=== PATIENT | male | born 1940 | race Caucasian/White ===

== ENCOUNTER 2020-03-09 11:19 | Inpatient (IN) ==
--- NOTE | 2020-02-21 13:30 | PAT Medication Instructions ---
Medication Instructions Date of Service February 21, 2020 Home Medications amlodipine 10 mg PO HS aspirin [Aspir-Low] 81 mg PO HS] cholecalciferol (vitamin D3) [Vitamin D3] 25 mcg PO QAM cyanocobalamin (vitamin B-12) 100 mcg PO QAM diclofenac sodium 75 mg PO HS gabapentin 200 mg PO HS lisinopril 40 mg PO HS magnesium oxide 400 mg PO QAM ASK your surgeon for instructions diclofenac sodium 75 mg PO HS DO NOT take the morning of surgery cholecalciferol (vitamin D3) [Vitamin D3] 25 mcg PO QAM cyanocobalamin (vitamin B-12) 100 mcg PO QAM magnesium oxide 400 mg PO QAM Take evening before surgery amlodipine 10 mg PO HS aspirin [Aspir-Low] 81 mg PO HS gabapentin 200 mg PO HS lisinopril 40 mg PO HS OTHERWISE NOTHING TO EAT OR DRINK AFTER MIDNIGHT Other Notes If you have any questions please call us at [phone] or [phone] or [phone] or [phone]
--- NOTE | 2020-02-23 12:14 | Anesthesiology Consultation ---
Date of Service February 23, 2020 Assessment & Plan (1) Encounter for pre-operative examination: - Per assessment on 02/22: Travel screen negative. No known COVID-19 positive contacts or current COVID-19 related symptoms. Surgeon arranging preop COVID testing. Awaiting results. - ASA instructions per surgeon/prescriber Chart Review Chart Review: Acceptable Risk for Surgery and Patient seen in Pre Admission Testing Teaching & Discussion Pre-Anesthesia Teaching/Discussion Notes: Instructed NPO after midnight before surgery,except medications with 15 cc of water. Medication instructions provided according to the PAT guidelines. History Surgery Operation Date: 03/09/20 10:35 Proposed Procedures p L5-S1 Decompression, L4-S1 Fusion, Spinal Cord Monitoring - Hadley Byrne, Height/Weight Height: 5 ft 9 in Weight: 93.3 kg Allergies Allergy/AdvReac Type Severity Reaction Status Date / Time saw ashshivam Allergy Severe Hives, Verified 02/22/20 14:31 dyspnea adhesive tape AdvReac Intermediate Blistering Verified 02/22/20 14:31 with tape/steristrips/some bandaids Medications Home Medications Medication Instructions Recorded Confirmed Last Taken amlodipine 10 mg PO HS 02/15/20 02/15/20 Unknown aspirin [Aspir-Low] 81 mg PO HS 02/15/20 02/15/20 Unknown cholecalciferol (vitamin D3) 25 mcg PO QAM 02/15/20 02/15/20 Unknown [Vitamin D3] cyanocobalamin (vitamin B-12) 100 mcg PO QAM 02/15/20 02/15/20 Unknown diclofenac sodium 75 mg PO HS 02/15/20 02/15/20 Unknown gabapentin 200 mg PO HS 02/15/20 02/15/20 Unknown lisinopril 40 mg PO HS 02/15/20 02/15/20 Unknown magnesium oxide 400 mg PO QAM 02/15/20 02/15/20 Unknown Past Medical History Medical History Chronic back pain Degenerative disc disease Hyperlipidemia Hypertension Osteoarthritis Spinal cord stimulator status Medtronic, advised to bring remote AM DOS Exercise / Class Metabolic Activity II 4-5 Yardwork/Stairs/Walk up hill Past Family History Family History Son Family history of diabetes mellitus Past Surgical History Surgical History History of appendectomy History of colonoscopy History of laminectomy lumbar x2 History of total knee replacement R/L History of total shoulder replacement right S/P insertion of spinal cord stimulator + replacement Past Anesthesia History No Hx of Anesthesia Complications and No Family Hx of Anesthesia Complications History of PONV No Hx of PONV Social History Smoking Status: Former smoker Do You Dip or Chew Tobacco: No Smoking End Date: Quit 45 years ago Hx Alcohol Use: No Hx Substance Use: No Review of Systems Patient denies chest pain, shortness of breath, dyspnea on exertion, fever, chills, cough, wheezing, palpitations. Physical Exam Vital Signs VITALS BP 103/80 P 72 TEMP 98.1 SP02 93%RA RESP 16 PHYSICAL Full neck and c-spine range of motion. Full TMJ range of motion. TMD 3.5 finger breaths Mallampati Score 2 Dentition: intact, several crowns Lungs: clear throughout to auscultation Cardiac: regular rate and rhythm, no murmurs noted Spine: normal Carotid arteries: negative bruit Extremities: no edema Testing Laboratory Results 02/23/20 12:51 02/23/20 12:51 PT 10.9 Seconds (9.0-12.0) 02/23/20 12:51 INR 1.0 (0.9-1.1) 02/23/20 12:51 APTT 29.2 Seconds (21.0-31.0) 02/23/20 12:51 Urine Color Yellow 02/23/20 13:35 Urine Appearance Clear (Clear) 02/23/20 13:35 Urine pH 7.0 (4.5-7.5) 02/23/20 13:35 Ur Specific [place] 1.010 (1.000-1.030) 02/23/20 13:35 Urine Protein Negative (Negative) 02/23/20 13:35 Urine Glucose (UA) Negative (Negative) 02/23/20 13:35 Urine Ketones Negative (Negative) 02/23/20 13:35 Urine Nitrite Negative (Negative) 02/23/20 13:35 Ur Leukocyte Esterase Negative (Negative) 02/23/20 13:35 Blood Type A Positive 02/23/20 12:51 Antibody Screen NEGATIVE 02/23/20 12:51 Electrocardiogram Date: 02/23/20 Findings: + NSR @ (68) Chest X-Ray Date: 02/23/20 FINDINGS: PA and lateral chest radiographs are obtained. No prior studies are available for comparison at the time of dictation. The cardiomediastinal silhouette is unremarkable noting atherosclerotic calcification of the thoracic aorta. There is elevation of the left hemidiaphragm with associated atelectasis. No airspace consolidation or pleural effusion is identified. There is no pneumothorax. The skeletal structures are osteopenic. The bony thorax appears intact. Degenerative change is seen throughout the thoracic spine. A right shoulder arthroplasty is in place. Advanced arthritic change is seen in the left shoulder. Surgical clips are noted in the left lower neck. A neurostimulator device projects over the lower thoracic region. IMPRESSION: No active disease in the chest.
--- NOTE | 2020-02-23 13:17 | XRay Report ---
TWO VIEW CHEST CLINICAL HISTORY: Preoperative examination. FINDINGS: PA and lateral chest radiographs are obtained. No prior studies are available for compariso n at the time of dictation. The cardiomediastinal silhouette is unremarkable noting atherosclerotic calcification of the thoracic aorta. There is elevation of the left hemidiaphragm with associated ate lectasis. No airspace consolidation or pleural effusion is identified. There is no pneumothorax. The skeletal structures are osteopenic. The bony thorax appears intact. Degenerative change is seen throu ghout the thoracic spine. A right shoulder arthroplasty is in place. Advanced arthritic change is see n in the left shoulder. Surgical clips are noted in the left lower neck. A neurostimulator device pro jects over the lower thoracic region. IMPRESSION: No active disease in the chest. ACT 112: Negative or not required by law. Electronically signed by: Ramirez Pappas M.D. 02/23/2020 1:16 PM
[2020-02-23 15:19] LABS: Basophils # (auto) 0.06 K/uL (0-0.2); Basophils % (auto) 0.6 %; Eosinophils # (auto) 0.12 K/uL (0-0.5); Eosinophils % (auto) 1.2 %; Hematocrit (blood only) 39.6 % (42-52); Immature Granulocytes # (auto) 0.03 K/uL (0.00-0.02); Immature Granulocytes % (auto) 0.3 %; Lymphocytes # (auto) 2.22 K/uL (1.2-3.4); Lymphocytes % (auto) 22.7 %; Mean Corpuscular Hemoglobin 30.4 pg (25-34); Mean Corpuscular Hgb Conc 35.4 g/dL (32-36); Mean Corpuscular Volume 86.1 fL (80-100); Mean Platelet Volume 10.1 fL (7.4-10.4); Monocytes # (auto) 0.97 K/uL (0.11-0.59); Monocytes % (auto) 9.9 %; Neutrophils # (auto) 6.38 K/uL (1.4-6.5); Neutrophils % (auto) 65.3 %; Platelet Count 259 K/uL (130-400); RDW Coefficient of Variation 12.8 % (11.5-14.5); RDW Standard Deviation 40.6 fL (36.4-46.3); White Blood Count 9.78 K/uL (4.8-10.8)
[2020-02-23 15:22] LABS: Appearance Urine Clear (Clear); Bilirubin Urine Negative (Negative); Blood Urine Negative (Negative); Color Urine Yellow; Glucose Urine UA Negative (Negative); Ketones Urine Negative (Negative); Leukocyte Esterase Urine Negative (Negative); Nitrite Urine Negative (Negative); Protein Urine Negative (Negative); Urobilinogen Urine Negative (Negative)
[2020-02-23 15:26] LABS: BUN Creatinine Ratio 22.3 (10-20); Calcium 9.3 mg/dl (8.5-10.1); Creatinine Clr Calc Pharmacy 62.1 ml/min; Est GFR (African American) 75.6; Est GFR (Non-African American) 65.2; Potassium 4.3 mmol/L (3.5-5.1)
[2020-02-23 15:29] LABS: Partial Thromboplastin Time 29.2 Seconds (21.0-31.0); Prothrombin Time 10.9 Seconds (9.0-12.0)
--- NOTE | 2020-02-24 05:25 | Electrocardiogram Report ---
Test Reason : Blood Pressure : / mmHG Vent. Rate : 068 BPM Atrial Rate : 068 BPM P-R Int : 196 ms QRS Dur : 092 ms QT Int : 378 ms P-R-T Axes : 063 064 058 degrees QTc Int : 401 ms Normal sinus rhythm Normal ECG No previous ECGs available Confirmed by Jn Pinzon ([id number]) on 02/24/2020 5:24:40 AM Referred By: Hadley Byrne Confirmed By:Jn Pinzon
[~2020-03-09 11:19] MED LIST: ACETAMINOPHEN 500 MG TAB PO SCH; CeleBREX 200 MG CAP PO SCH; GABAPENTIN 300 MG CAP PO SCH; LR 15ML/HR IV SCH; SODIUM CHLORIDE 0.9% 250 ML IV PRN; ceFAZolin 2000MG 2,000 MG/15 ML SYR IV SCH
[2020-03-09] MEDS ORDERED: NEOSTIGMINE METHYLSULFATE 1 MG/ML 10ML VIAL ONE (11:40)
[2020-03-09] MEDS ORDERED: LIDOCAINE HCL 2% 2 ML VIAL/AMP(20MG/ML) INFIL ONE (11:40)
[2020-03-09] MEDS ORDERED: MIDAZOLAM HCL 1 MG/ML 2ML VIAL ONE (11:40)
[2020-03-09] MEDS ORDERED: fentaNYL citrate 100 MCG/2 ML VIAL ONE (11:40)
[2020-03-09] MEDS ORDERED: ONDANSETRON INJ 2 MG/ML 2 ML VIAL ONE ×2 (11:40→14:57)
[2020-03-09] MEDS ORDERED: PROPOFOL IV EMULSION 10 MG/ML 20 ML VIAL IV ONE (11:40)
[2020-03-09] MEDS ORDERED: DEXAMETHASONE SOD INJ 4 MG/ML VIAL ONE ×2 (11:40→14:57)
[2020-03-09] MEDS ORDERED: GLYCOPYRROLATE 0.2 MG/ML VIAL ONE (11:40)
[2020-03-09] MEDS ORDERED: ROCURONIUM BROMIDE 10 MG/ML 5 ML VIAL IV ONE (11:40)
--- NOTE | 2020-03-09 12:25 | History & Physical Bridge Note ---
Date of Service March 09, 2020 History & Physical Bridge Note I have examined the patient, reviewed the History & Physical and in the interval since the performance of the History & Physical I have noted the following changes of clinical significance: no changes noted
--- NOTE | 2020-03-09 12:26 | History & Physical Report ---
Date of Service March 09, 2020 Assessment & Plan (1) Neurogenic claudication due to lumbar spinal stenosis: Admission and Anticipated Discharge Date Admission Date: L5-S1 decompression, L4-S1 fusion History of Present Illness Chief Complaint: Back and leg pain Primary Care Provider: Rudi Snyder MD This is an 79-year-old male who presents with chronic persistent worsening back and leg pain after failing course of nonoperative care is here for surgical intervention. Allergies Allergy/AdvReac Type Severity Reaction Status Date / Time saw raphael Allergy Severe Hives, Verified 03/09/20 11:51 dyspnea adhesive tape AdvReac Intermediate Blistering Verified 03/09/20 11:51 with tape/steristrips/some bandaids Home Medications Home Medications Medication Instructions Recorded Confirmed Type amlodipine 10 mg PO HS 02/15/20 03/09/20 History aspirin [Aspir-Low] 81 mg PO HS 02/15/20 03/09/20 History cholecalciferol (vitamin D3) 25 mcg PO QAM 02/15/20 03/09/20 History [Vitamin D3] cyanocobalamin (vitamin B-12) 100 mcg PO QAM 02/15/20 03/09/20 History diclofenac sodium 75 mg PO HS 02/15/20 03/09/20 History gabapentin 200 mg PO HS 02/15/20 03/09/20 History lisinopril 40 mg PO HS 02/15/20 03/09/20 History magnesium oxide 400 mg PO QAM 02/15/20 03/09/20 History Past Med/Surg History Medical History Chronic back pain Degenerative disc disease Hyperlipidemia Hypertension Osteoarthritis Spinal cord stimulator status Medtr[employer], advised to bring remote AM DOS Surgical History History of appendectomy History of colonoscopy History of laminectomy lumbar x2 History of total knee replacement R/L History of total shoulder replacement right S/P insertion of spinal cord stimulator + replacement Family History Son Family history of diabetes mellitus Social History Smoking Status: Former smoker Smoking End Date: Quit 45 years ago; 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); Do You Dip or Chew Tobacco: No; Hx Alcohol Use: No Hx Substance Use: No Preferred Language: Maori Communication Ability: Effective Regrader Required: No Beliefs That Will Affect Care: None Current Living Situation: Spouse Other Information That Helps Us Care for You: No Feels Safe at Home: Yes Safety Concerns: Feels Safe At This Time Assistive Devices: Cane and Glasses Assistive Devices Comment: CANE PRN Physical Exam Physical Exam: Patient is alert and oriented Heart regular rate and rhythm Lungs clear to auscultation Results & Data ([facility]) Vital Signs (Past 12 Hours) Vital Signs Temp Pulse Resp BP Pulse Ox 03/09/20 11:55 36.7 C 88 20 152/98 H 97
[2020-03-09] MEDS ORDERED: PROMETHAZINE HCL 6.25 MG in SODIUM CHLORIDE 0.9% 50 ML IV PRN (12:47)
[2020-03-09] MEDS ORDERED: fentaNYL citrate 100 MCG/2 ML VIAL IV PRN (12:47)
[2020-03-09] MEDS ORDERED: ONDANSETRON INJ 2 MG/ML 2 ML VIAL IV PRN ×2 (12:47→16:31)
[2020-03-09] MEDS ORDERED: HYDROmorphone INJ 2 MG/ML SYR/VIAL IV PRN (12:47)
[2020-03-09] MEDS ORDERED: ePHEDrine sulfate 50 MG/ML AMP IV PRN (12:47)
[2020-03-09] MEDS ORDERED: ATROPINE SULFATE 0.1 MG/ML 10ML SYR IV PRN (12:47)
[2020-03-09] MEDS ORDERED: BACITRACIN INJ 50,000 UNIT VIAL ONE (12:56)
[2020-03-09] MEDS ORDERED: BUPIVACAINE/EPINEPHRINE 0.5% MPF 1:200,000 30 ML VIAL ONE (12:56)
[2020-03-09] MEDS ORDERED: PHENYLEPHRINE 100MCG/ML 5ML SYR ONE (13:39)
[2020-03-09] MEDS ORDERED: HYDROmorphone INJ 2 MG/ML SYR/VIAL ONE (13:57)
[2020-03-09] MEDS ORDERED: FLOSEAL HEMOSTATIC MATRIX 10ML TOP ONE (14:58)
--- NOTE | 2020-03-09 15:00 | Operative Report ---
Post Operative Report Pre & Post Diagnosis Operation Date: 03/09/20 12:55 Pre-Op Diagnosis: Lumbar spinal stenosis with spondylolisthesis and neurogenic claudication Post-Op Diagnosis: Same I identified the patient and participated in the time-out.: Yes Procedure Operation Date: 03/09/20 12:55 Actual Procedures #1 revision decompression with medial facetectomies and foraminotomies L4-5 L5- S1. #2 posterior spinal fusion L4-5 L5-S1. #3 placement posterior instrumentation L4-S1. #4 placement of locally harvested morselized autograft in the posterior lateral gutters. #5 placement infuse collagen sponge, master graft in the posterior gutters L4-S1. Surgeon Hadley Byrne, Hot Header Operator Abdullahi Young Estimated Blood Loss 50 Findings Consistent with Post-Op Diagnosis Specimens None Indications This is a 79-year-old male who presents with above-mentioned diagnosis after failing course of nonoperative care is here for the above-mentioned procedure. Description of Procedure Patient was met with identified informed consent obtained. Patient was then taken to the operative suite underwent an patient placed in a prone position the Domingo table on top of the Angel frame. All bony prominences well-padded eyes inspected to ensure no external pressure placed upon the. This point the lumbar spine was prepped and draped in a normal sterile fashion. Sharp dissection with the assistance of Bovie cautery performed down to and exposing the remaining lamina and transverse processes of L4-L5 and the sacral ala bilaterally. Then performed revision medial facetectomy foraminotomies L4-5 L5-S1 on the right. There is evidence of dural ectasia underneath the facet at L5 4 5 on the right. Subsequently elected to forego complete facetectomy. I then placed pedicle screws in L4 and S1 levels bilaterally with assistance of fluoroscopy and locked them into final position. Transverse processes of L3-4 L5 and the sacral ala were bent burred to subcortical bleeding bone. Infuse collagen sponge mass graft local autograft was placed in the posterior gutters. I did place a small amount of DuraSeal at the L 4 L5 level on the right prophylactically. 15 round REINALDO drain was inserted. Incision was then closed with 1 Vicryl the fascia 2-0 Vicryl subcutaneously and 4 Monocryl for final skin closure. Steri-Strip sterile dressings placed. Patient waken taken to PACU stable condition. Please note spinal cord monitoring was utilized that the procedure no changes noted. Lastly Abdullahi record was present at the entire surgery involved the patient positioning complex portions of the surgery and final skin closure. I attest to the content of the Intraoperative Record and any orders documented therein. Any exceptions are noted below.
--- NOTE | 2020-03-09 15:01 | Fluoroscopy Report ---
FL lumbar spine 2-3V CLINICAL HISTORY: L5-S1 DECOMPRESSION/L4-S1 FUSION/INTERBODY COMPARISON STUDY: None FLUOROSCOPY TIME: 33 seconds. NUMBER OF FLUOROSCOPIC IMAGES: 2 FINDINGS: 2 fluoroscopic spot images are provided for interpretation. There are advanced degenerative changes within the lower lumbar spine. There is a grade 1 spondylolisthesis of L5 and S1. There are pedicle screws and adjoining spinal rods at the L4 and S1 levels. IMPRESSION: Intraoperative fluoroscopic spot images demonstrating an L4-S1 spinal fusion ACT 112: Negative or not required by law. Electronically signed by: Ayo Rivera M.D. 03/09/2020 2:59 PM
--- NOTE | 2020-03-09 15:49 | Anesthesiology Progress Note ---
Date of Service March 09, 2020 Anesthesia Post Procedure Vital Signs Vital Signs: Temp Pulse Pulse Resp BP BP Pulse Ox 03/09/20 15:35 58 L 14 139/83 99 03/09/20 15:25 66 14 156/76 H 99 03/09/20 15:17 36.6 C 71 17 133/81 100 03/09/20 11:55 36.7 C 88 20 152/98 H 97 Pain Intensity Right Hip: Pain Intensity: 3 Transfer of Care Handoff Completed per policy Notes Mental Status: alert / awake / arousable and participated in evaluation Nausea / Vomiting: adequately controlled Pain: adequately controlled Airway Patency, RR, SpO2: stable & adequate BP & HR: stable & adequate Hydration State: stable & adequate Anesthetic Complications: no major complications apparent
[2020-03-09] MEDS ORDERED: SOD PHOSPHATE/SOD BIPHOSPHATE ENEMA 132 ML BTL PR PRN (16:31)
[2020-03-09] MEDS ORDERED: LORazepam 0.5 MG TAB PO PRN (16:31)
[2020-03-09] MEDS ORDERED: DO NOT ADMINISTER FLU VACCINE PRN (16:31)
[2020-03-09] MEDS ORDERED: hydrOXYzine HCl 25 MG TAB PO PRN (16:31)
[2020-03-09] MEDS ORDERED: FAMOTIDINE 20 MG TAB PO PRN (16:31)
[2020-03-09] MEDS ORDERED: NALOXONE HCL 0.4 MG/1 ML VIAL/CARP IV PRN (16:31)
[2020-03-09] MEDS ORDERED: HYDROmorphone INJ 1 MG/ML SYRINGE IV PRN (16:31)
[2020-03-09] MEDS ORDERED: ONDANSETRON 4 MG OD TAB PO PRN (16:31)
[2020-03-09] MEDS ORDERED: diphenhydrAMINE Capsule 25 MG CAP PO PRN (16:31)
[2020-03-09] MEDS ORDERED: LORazepam 0.5 MG/1 ML VIAL IV PRN (16:31)
[2020-03-09] MEDS ORDERED: ACETAMINOPHEN 1,000 MG/100 ML VIAL IV PRN (16:31)
[2020-03-09] MEDS ORDERED: ALUMINUM/MAGNESIUM SUSP 30 ML UDC PO PRN (16:31)
[2020-03-09] MEDS ORDERED: DO NOT ADMINISTER PNEUMOCOCCAL VACCINE PRN (16:31)
[2020-03-09] MEDS ORDERED: MAGNESIUM HYDROXIDE SUSP 30 ML UDC PO PRN (16:31)
[2020-03-09] MEDS ORDERED: HYDROmorphone INJ 0.5 MG/0.5 ML SYR IV PRN (16:31)
[2020-03-09] MEDS ORDERED: bisacodyL 10 MG SUPP PR PRN (16:31)
[2020-03-09] MEDS ORDERED: oxyCODONE HCL IR 5 MG TAB (IMMEDIATE RELEASE) PO PRN (16:31)
[2020-03-09] MEDS ORDERED: PROMETHAZINE HCL 12.5 MG in SODIUM CHLORIDE 0.9% 50 ML IV PRN (16:31)
[2020-03-09] MEDS ORDERED: METOCLOPRAMIDE HCL INJ 5 MG/ML 2 ML VIAL IV PRN (16:31)
[2020-03-09] MEDS: LACTATED RINGER'S 1,000 ML IV SCH (20:10)
[2020-03-09] MEDS: amLODIPine BESYLATE 5 MG TAB PO SCH (21:00)
[2020-03-09] MEDS: GABAPENTIN 100 MG CAP PO SCH (21:00)
[2020-03-09] MEDS: ASPIRIN 81 MG ECTAB PO SCH (21:00)
[2020-03-09] MEDS: ceFAZolin 2000MG 2,000 MG/15 ML SYR IV SCH (21:00)
[2020-03-09] MEDS: DOCUSATE SODIUM/SENNA 50/8.6MG TAB PO SCH (21:00)
[2020-03-09] MEDS: lisinopril 40 MG TAB PO SCH (21:01)
--- NOTE | 2020-03-09 23:47 | Consultation Report ---
DATE OF CONSULTATION: 03/09/2020 CHIEF COMPLAINT: Status post back surgery. HISTORY OF PRESENT ILLNESS: This is a 79-year-old male with past medical history significant for hypertension, GERD, hypercholesterolemia, chronic kidney disease stage III, history of peripheral neuropathy, history of generalized osteoarthritis, history of spinal stenosis, status post spinal cord stimulator, status post back surgery, tolerated the procedure okay. Sitting in chair comfortably. Denies any back pain. Tolerated liquid diet okay. Denies any chest pain, no shortness of breath, no cough, no headache, no blurred visions, no earache, no runny nose, no sore throat, no nausea. No feeling of cold or chills, feeling fine. ALLERGIES: TO SAW PALMETTO, TAPES, STATINS, BETADINE. PAST MEDICAL HISTORY: As mentioned above. PAST SURGICAL HISTORY: Bilateral total knee replacement, carpal tunnel surgery, colonoscopies, status post spinal stimulator, laminectomy x2, ulnar nerve relocation x2, appendectomy, removal of implanted spinal neurostimulator in 2017. MEDICATIONS: The patient is on amlodipine 10 mg p.o. at bedtime, aspirin 81 mg at p.o. bedtime, vitamin D 25 mcg p.o. daily, vitamin B12 100 mcg p.o. a.m., diclofenac sodium 75 mg p.o. at bedtime, gabapentin 200 mg p.o. at bedtime, lisinopril 40 mg p.o. at bedtime, magnesium oxide 400 mg p.o. a.m. FAMILY HISTORY: Significant for mother has asthma, Torrez's palsy. Father has heart attack, stroke. Mother had hypertension. Father due to renal failure at age of 86. Brother has vertigo. SOCIAL HISTORY: . Former smoker, quit in 1970s. No alcohol use, no drug use. REVIEW OF SYMPTOMS: As per HPI. Rest of review of symptoms negative. PHYSICAL EXAMINATION: GENERAL: The patient is of moderate build, not in acute distress. VITAL SIGNS: Temperature 36.3, pulse 87, respiratory rate 22, blood pressure 157/74, oxygen 96% on room air. HEENT: Head atraumatic. Eyes: Extraocular muscles intact. NECK: No neck masses seen. CARDIOVASCULAR: S1, S2 heard, regular rate and rhythm, no murmur, no gallop. RESPIRATORY SYSTEM: Normal AP diameter. No accessory muscle use. No wheezing, no crackles. ABDOMEN: Soft, bowel sounds present. No distention, no guarding. No rigidity. CENTRAL NERVOUS SYSTEM: Nonfocal. MUSCULOSKELETAL: Status post back surgery. Dressing and drain intact. EXTREMITIES: No edema, no erythema. LABORATORY DATA: Unavailable. ASSESSMENT AND PLAN: This is an 79-year-old male status post back surgery. 1. Status post back surgery. Tolerated the procedure fine. Further management as per orthopedics. 2. Hypertension. Continue his home lisinopril, amlodipine. We will monitor the blood pressure. 3. Chronic kidney stage III. Baseline creatinine around 1.2. We will follow the labs in a.m. 4. Deep venous thrombosis prophylaxis.as per orthopedics 5. Disposition as per orthopedics. MTDD
[2020-03-10] MEDS: LACTATED RINGER'S 1,000 ML IV SCH (03:07)
[2020-03-10] MEDS: ceFAZolin 2000MG 2,000 MG/15 ML SYR IV SCH (04:59)
[2020-03-10] MEDS: POLYETHYLENE (MIRALAX) 17 GM PACK PO SCH ×4 (05:00→23:08)
[2020-03-10 05:37] LABS: Basophils # (auto) 0.01 K/uL (0-0.2); Basophils % (auto) 0.1 %; Hematocrit (blood only) 35.2 % (42-52); Hemoglobin 12.4 g/dL (14.0-18.0); Immature Granulocytes # (auto) 0.06 K/uL (0.00-0.02); Immature Granulocytes % (auto) 0.4 %; Lymphocytes # (auto) 0.84 K/uL (1.2-3.4); Lymphocytes % (auto) 5.3 %; Mean Corpuscular Hemoglobin 30.4 pg (25-34); Mean Corpuscular Hgb Conc 35.2 g/dL (32-36); Mean Corpuscular Volume 86.3 fL (80-100); Mean Platelet Volume 9.2 fL (7.4-10.4); Monocytes # (auto) 1.04 K/uL (0.11-0.59); Monocytes % (auto) 6.5 %; Neutrophils # (auto) 14.05 K/uL (1.4-6.5); Neutrophils % (auto) 87.7 %; Platelet Count 211 K/uL (130-400); RDW Coefficient of Variation 12.8 % (11.5-14.5); RDW Standard Deviation 40.5 fL (36.4-46.3); Red Blood Count 4.08 M/uL (4.7-6.1)
[2020-03-10 06:03] LABS: BUN Creatinine Ratio 16.2 (10-20); Calcium 8.7 mg/dl (8.5-10.1); Creatinine Clr Calc Pharmacy 60.4 ml/min; Est GFR (African American) 74.7; Est GFR (Non-African American) 64.5
[2020-03-10] MEDS: CHOLECALCIFEROL 1,000 UNITS 25 MCG TAB PO SCH (08:40)
[2020-03-10] MEDS: CYANOCOBALAMIN (VITAMIN B-12) 100 MCG TABLET PO SCH (08:40)
[2020-03-10] MEDS: MAGNESIUM OXIDE 400 MG TAB PO SCH (08:40)
--- NOTE | 2020-03-10 09:17 | Orthopedic Progress Note ---
Date of Service March 10, 2020 Assessment & Plan (1) Neurogenic claudication due to lumbar spinal stenosis: Admission and Anticipated Discharge Date Admission Date: March 09, 2020 This time we will undergo physical therapy today monitor his REINALDO output antic ipate possible discharge home Thursday or Thursday. Subjective Back pain controlled leg pain improved. Patient is tolerating standing and walking without difficulty. Denies headaches nausea or vomiting. Physical Exam Physical Exam: Patient is in the chair has good strength testing. Results & Data ([facility]) Vital Signs (Past 12 Hours) Vital Signs Temp Pulse Resp BP BP Pulse Ox 03/10/20 06:32 36.4 C L 64 18 132/74 03/10/20 03:24 36.5 C 65 16 116/67 94 03/10/20 02:53 36.4 C L 64 16 117/66 96 03/09/20 22:58 36.6 C 69 18 121/63 95
[2020-03-10] MEDS: ACETAMINOPHEN 500 MG TAB PO PRN ×2 (13:16→23:08)
--- NOTE | 2020-03-10 15:57 | Hospitalist Progress Note ---
Date of Service March 10, 2020 Assessment & Plan (1) Neurogenic claudication due to lumbar spinal stenosis: POD # 1. (2) Hypertension: BP this morning 132/74. Continue amlodipine and lisinopril. (3) CKD (chronic kidney disease), stage III: Creatinine stable @ 1.08. (4) Leukocytosis: WBC = 16,000. Afebrile. No signs or symptoms of infection. Follow. (5) DVT prophylaxis: Per Ortho Spine protocol. (6) Discharge planning issues: Medical follow-up with Dr. Snyder. (7) Encounter for consultation: Thank you for this consultation. We will follow the patient with you during their hospital stay. My cell # is [phone]. You can reach a member of the [facility] Medicine Team 17/11 via pager @ [phone]. Admission and Anticipated Discharge Date Admission Date: March 09, 2020 Subjective Recheck for perioperative medical management. Patient seen in their room around 1110. Lumbar decompression / fusion performed yesterday by Dr. Byrne. Doing well postoperatively. No fever. No chest pain. No cough or SOB. No nausea or vomiting. Not passing any flatus or stool yet. Still has Chirinos cath. Pain fairly well-controlled. Review of Systems: As noted above. Physical Exam Constitutional: no acute distress Eyes: + anicteric sclerae Respiratory: normal respiratory effort, lungs clear to auscultation Cardiovascular: Rate/Rhythm: regular rate and regular rhythm Vessels: no JVD Extremities: no calf tenderness and no edema Gastrointestinal (Abdomen): normal bowel sounds, soft, nontender, no hepatosplenomegaly Musculoskeletal: Extremities: extremities normal to inspection (TEDS applied to lower extremities); no cyanosis Skin: no rashes, warm and dry Psychiatric: Orientation: alert and oriented x 3 Results & Data Results & Data ([facility]) Vital Signs (Past 12 Hours) Vital Signs Temp Pulse Resp BP 03/10/20 06:32 36.4 C L 64 18 132/74 Laboratory Results 03/10/20 05:19 03/10/20 05:19
[2020-03-10] MEDS: GABAPENTIN 100 MG CAP PO SCH (20:24)
[2020-03-10] MEDS: DOCUSATE SODIUM/SENNA 50/8.6MG TAB PO SCH (20:24)
[2020-03-10] MEDS: ASPIRIN 81 MG ECTAB PO SCH (20:24)
[2020-03-10] MEDS: amLODIPine BESYLATE 5 MG TAB PO SCH (20:25)
[2020-03-10] MEDS: lisinopril 40 MG TAB PO SCH (20:25)
[2020-03-11] MEDS: POLYETHYLENE (MIRALAX) 17 GM PACK PO SCH ×4 (05:18→23:02)
[2020-03-11] MEDS: CYANOCOBALAMIN (VITAMIN B-12) 100 MCG TABLET PO SCH (07:15)
[2020-03-11] MEDS: ACETAMINOPHEN 500 MG TAB PO PRN (07:15)
[2020-03-11] MEDS: CHOLECALCIFEROL 1,000 UNITS 25 MCG TAB PO SCH (07:15)
[2020-03-11] MEDS: MAGNESIUM OXIDE 400 MG TAB PO SCH (07:15)
--- NOTE | 2020-03-11 08:11 | Orthopedic Progress Note ---
Date of Service March 11, 2020 Assessment & Plan (1) Neurogenic claudication due to lumbar spinal stenosis: Patient is stable postop day #2. We will continue GI DVT prophylaxis as well as pain control. I believe could benefit from another day of therapy. He will likely be discharged home tomorrow. Admission and Anticipated Discharge Date Admission Date: March 09, 2020 Subjective Patient was seen bedside in room 306. He is sitting comfortably in his chair. He states he has some pain in the back itself and some pain along with the right buttock but nothing radiating further down his leg. He has been up walking with physical therapy. He has not yet had a bowel movement he denies any other numbness, tingling, or paresthesias. Physical Exam Physical Exam: On exam he is alert and oriented. His dressings clean dry and intact. His calves are supple nontender his abdomen supple nontender. His strength and sensation are grossly intact. His REINALDO drain is in place and has put out 40 cc of discharge on the 2 previous recordings. Results & Data ([facility]) Vital Signs (Past 12 Hours) Vital Signs Temp Pulse Resp BP Pulse Ox 03/11/20 06:30 36.7 C 80 16 155/77 H 95 03/10/20 23:40 36.7 C 73 16 128/69 97
[2020-03-11] MEDS: traMADol HCL 50 MG TABLET PO PRN ×3 (10:34→21:04)
[2020-03-11] MEDS ORDERED: DEXAMETHASONE SOD PHOSPHATE 8 MG in SYRINGE 0 ML IV ONE (13:00)
--- NOTE | 2020-03-11 18:21 | Hospitalist Progress Note ---
Date of Service March 11, 2020 Assessment & Plan (1) Neurogenic claudication due to lumbar spinal stenosis: POD # 2. (2) Hypertension: BP this morning 115/65. Continue amlodipine and lisinopril. (3) CKD (chronic kidney disease), stage III: Creatinine stable @ 1.08. (4) Leukocytosis: WBC / = 16,000. Afebrile. No signs or symptoms of infection. Follow. (5) DVT prophylaxis: Per Ortho Spine protocol. (6) Discharge planning issues: Medical follow-up with Dr. Snyder. (7) Encounter for consultation: Thank you for this consultation. We will follow the patient with you during their hospital stay. My cell # is [phone]. You can reach a member of the [facility] Medicine Team 17/11 via pager @ [phone]. Admission and Anticipated Discharge Date Admission Date: March 09, 2020 Subjective Recheck for perioperative medical management. Patient seen in their room around 0830. Doing well postoperatively. No fever. No chest pain. No cough or SOB. No nausea or vomiting. Passing flatus, but no stool. Chirinos cath removed yesterday; voiding without difficulty. Pain fairly well-controlled. Review of Systems: As noted above. Physical Exam Constitutional: no acute distress Eyes: + anicteric sclerae Respiratory: normal respiratory effort, lungs clear to auscultation Cardiovascular: Rate/Rhythm: regular rate and regular rhythm Vessels: no JVD Extremities: no calf tenderness and no edema Gastrointestinal (Abdomen): normal bowel sounds, soft, nontender, no hepatosplenomegaly Musculoskeletal: Extremities: extremities normal to inspection; no cyanosis Skin: no rashes, warm and dry Psychiatric: Orientation: alert and oriented x 3 Results & Data Results & Data ([facility]) Vital Signs (Past 12 Hours) Vital Signs Temp Pulse Resp BP Pulse Ox 03/11/20 15:38 37.2 C 71 16 115/65 94 03/11/20 06:30 36.7 C 80 16 155/77 H 95
[2020-03-11] MEDS: amLODIPine BESYLATE 5 MG TAB PO SCH (21:04)
[2020-03-11] MEDS: ASPIRIN 81 MG ECTAB PO SCH (21:04)
[2020-03-11] MEDS: DOCUSATE SODIUM/SENNA 50/8.6MG TAB PO SCH (21:04)
[2020-03-11] MEDS: lisinopril 40 MG TAB PO SCH (21:05)
[2020-03-11] MEDS: GABAPENTIN 100 MG CAP PO SCH (21:05)
[2020-03-12] MEDS: POLYETHYLENE (MIRALAX) 17 GM PACK PO SCH (05:53)
[2020-03-12] MEDS: CYANOCOBALAMIN (VITAMIN B-12) 100 MCG TABLET PO SCH (08:28)
[2020-03-12] MEDS: MAGNESIUM OXIDE 400 MG TAB PO SCH (08:28)
[2020-03-12] MEDS: CHOLECALCIFEROL 1,000 UNITS 25 MCG TAB PO SCH (08:28)
--- NOTE | 2020-03-12 09:37 | Discharge Summary ---
Date of Service March 12, 2020 Admission HPI Per Admitting Provider This is an 79-year-old male who presents with chronic persistent worsening back and leg pain after failing course of nonoperative care is here for surgical intervention. Principal Diagnosis Lumbar spinal stenosis with neurogenic claudication Discharge Data Allergies Allergy/AdvReac Type Severity Reaction Status Date / Time saw raphael Allergy Severe Hives, Verified 03/09/20 11:51 dyspnea adhesive tape AdvReac Intermediate Blistering Verified 03/09/20 11:51 with tape/steristrips/some bandaids Consultations 03/09/20 16:31 Consult Case Management - Discharge Planning Routine Consult Hospitalist Routine Procedures Performed Operation Date: 03/09/20 12:55 Actual Procedures p L5-S1 Decompression, L4-S1 Fusion, Spinal Cord Monitoring - Hadley Byrne DO Ordered Studies 03/09/20 12:55 FL fluoroscopy <1hr Routine FL lumbar spine 2-3V Routine Hospital Course (1) Neurogenic claudication due to lumbar spinal stenosis: Patient went revision decompression fusion tolerated so was taken to orthopedic for postoperative. Postop day #1 is up and ambulating progressed to postop day #2. REINALDO drain decreasing appropriately. Bowels working well. Pain well controlled. Strength intact. Subsequently discharged home on postop day #3. Discharge orders instructions from the chart for further review. Total Time Total Time Spent Total Time Spent (In Minutes): 20 minutes Discharge Plan Discharge Items Patient Disposition: Home - Self-Care Reason For Visit: Spinal Stenosis, Lumbar Region without Neurogenic Discharge Diagnosis: Lumbar spinal stenosis with neurogenic claudication Activity: As commented below Non-emergency contact: Primary Care Provider Call non-emergency contact if: you have any medication questions Follow-up/Referrals: Rudi Snyder MD [Primary Care Provider] - Diet: Regular Addtl Attending Provider Instructions: ACTIVITY RECOMMENDATIONS: SELF CARE INSTRUCTIONS AFTER THORACIC/LUMBAR FUSIONS 1. You may walk to your tolerance. It is good exercise for your legs and back. Expect some back and intermittent leg aches and pains. 2. You may perform "counter-top" level activities (make a sandwich, esperanza with a project, etc.). 3. No bending or lifting of more than 10 pounds or back twisting of any nature (roll like a log when turning in bed). 4. You may ride in a car for 20-30 minutes at a time. No driving until after your first visit with your doctor. 5. Frequent changes of position and restricting sitting to 30 minutes at a time will help limit the amount of back spasms and stiffness you may experience. 6. You may discontinue the use of ambulatory aids (cane, crutches, etc.) once your strength and confidence allow. 7. You may mask inspector the shower and let water strike your incision when you arrive home at least once daily. Do not take a tub bath, sit in a hot tub or go into a swimming pool until after your first recheck in the office. SPECIAL CARE INSTRUCTIONS: VERY IMPORTANT TO READ AND REVIEW A. Your surgical incision has been closed with a cosmetic suture under the skin that will dissolve in about 6 weeks. In 14 days, you can use a pair of clean scissors and cut the suture that is left outside of the skin at the ends of your incision. 1. The small skin tapes can be removed 7 days after surgery if they have not fallen off by that point. 2. You may keep the wound open to air as much as possible to promote healing after post-op day number 5 unless told otherwise by your doctor. 3. If you think the wound looks like it is becoming infected (redness or worsening drainage) and/or you are experiencing fever, chill or worsening back pain and muscle spasms, contact the office so that we may evaluate you as soon as possible. B. Complications are uncommon, but please contact us if you have any signs or symptoms of: 1. wound infection (fever higher than 102.5 degrees F, redness, separation of wound, drainage, or increasing pain from the incision) 2. blood clots in legs (pain, swelling, redness and warmth in legs) 3. urinary tract infection (fever higher than 102.5 degrees F, burning upon urination or increased frequency of urination) 4. nerve problems (inability to walk on your toes or heels, numbness, loss of bowel or bladder control) 5. any other symptoms that concern you C. Please call the office at if you have any concerns or questions about your operation or recovery. D. No smoking! Smoking drastically decreases the chance of a solid fusion. E. Do not take any anti-inflammatory medications (Indocin, Advil, Motrin, Aspirin, Naprosyn, etc.) as these may inhibit the chance of a solid fusion. Tylenol is okay to take for pain. MANAGING PAIN AFTER SPINAL SURGERY 1. Narcotic medication is intended for short-term use and will be provided for surgical pain. Surgical pain usually lasts for a period of 4-6 weeks. Narcotic medication includes Percocet, Vicodin, Darvocet, Tylenol #3 or Lortab. 2. Longer-term pain is more appropriately treated with non-narcotic medication such as Tylenol ES. 3. Muscle spasm is not appropriately treated with narcotics. Muscle relaxers such as Soma, Flexeril or Skelaxin can be used along with Tylenol ES. 4. Remember that we all live with some "aches and pains". This is not unusual or uncommon after an injury or as we get older. a. Back pain is expected and may include muscle spasms for 4 to 6 weeks after surgery. The pain should gradually improve. If the pain worsens for no apparent reason, please contact the office. b. Intermittent leg pain may also be experienced and should not be concerned about unless it worsens for no apparent reason. If so, please contact the office. 5. We will provide appropriate medication within the normal guidelines of their prescribed use. We will also be very cautious and aware of potential abuse and extended duration of patients' medication needs. a. Pain medications are for your comfort and to assist with sleep and rest so that the tissue can heal. They are not provided in order to return to normal activity and should not be used through the day. To do so or worsening pain at night can result from ongoing tissue damage and development of tolerance to the prescribed medicine. 6. Please allow 2-3 days to process refills. Prescriptions will not be mailed but must be picked up at the office. FOLLOW UP VISIT: Keep your scheduled follow-up appointment. Any questions, please call the office at . Pending Studies at Discharge: No Stand-Alone Forms: My [employer], Smoking Cessation Medications and DC Order Prescriptions: New tramadol 50 mg tablet 50 mg PO Q6H PRN (Reason: pain, moderate) Qty: 30 RF: 0 oxycodone 5 mg tablet 5 mg PO Q6H PRN (Reason: pain, severe) Qty: 20 RF: 0 Continued cyanocobalamin (vitamin B-12) 100 mcg Tablet 100 mcg PO QAM RF: 0 amlodipine 10 mg Tablet 10 mg PO HS RF: 0 gabapentin 100 mg Capsule 200 mg PO HS RF: 0 lisinopril 40 mg Tablet 40 mg PO HS RF: 0 cholecalciferol (vitamin D3) [Vitamin D3] 25 mcg (1,000 unit) Capsule 25 mcg PO QAM RF: 0 magnesium oxide 400 mg magnesium Capsule 400 mg PO QAM RF: 0 aspirin 81 mg Tablet,Delayed Release (Dr/Ec) 81 mg PO HS RF: 0 Discontinued diclofenac sodium 75 mg Tablet,Delayed Release (Dr/Ec) 75 mg PO HS RF: 0 Discharge Orders: Discharge Order (Routine); Ordered 03/12/20 Ordered By: Hadley Byrne Admission Data Admit Date/Time: 03/09/20 16:20 Attending Provider: Hadley Byrne Admit Provider: Hadley Byrne Primary Care Provider: Rudi Snyder I. Other Providers: Kris Alvarez ; Jim Calvert
--- NOTE | 2020-03-12 11:51 | Hospitalist Progress Note ---
Date of Service March 12, 2020 Assessment & Plan (1) Neurogenic claudication due to lumbar spinal stenosis: POD # 3. (2) Hypertension: BP this morning 127/72. Continue amlodipine and lisinopril. (3) CKD (chronic kidney disease), stage III: Creatinine stable @ 1.08. (4) Leukocytosis: WBC / = 16,000. Afebrile. No signs or symptoms of infection. Follow. (5) DVT prophylaxis: Per [facility] protocol. (6) Discharge planning issues: Medical follow-up with Dr. Snyder. (7) Encounter for consultation: Thank you for this consultation. We will follow the patient with you during their hospital stay. My cell # is [phone]. You can reach a member of the [facility] Medicine Team 17/11 via pager @ [phone]. Admission and Anticipated Discharge Date Admission Date: March 09, 2020 Subjective Recheck for perioperative medical management. Patient seen in their room around 0910. Doing well postoperatively. No fever. No chest pain. No cough or SOB. No nausea or vomiting. Passing flatus, but still no stool. Voiding without difficulty. Postop pain better after receiving dexamethasone. Review of Systems: As noted above. Physical Exam Constitutional: no acute distress Eyes: + anicteric sclerae Respiratory: normal respiratory effort, lungs clear to auscultation Cardiovascular: Rate/Rhythm: regular rate and regular rhythm Vessels: no JVD Extremities: no calf tenderness and no edema Gastrointestinal (Abdomen): normal bowel sounds, soft, nontender, no hepatosplenomegaly Musculoskeletal: Extremities: extremities normal to inspection; no cyanosis Skin: no rashes, warm and dry Psychiatric: Orientation: alert and oriented x 3 Results & Data Results & Data ([facility]) Vital Signs (Past 12 Hours) Vital Signs Temp Pulse Resp BP BP Pulse Ox 03/12/20 09:58 36.5 C 84 18 127/72 153/74 H 95 03/12/20 06:28 36.5 C 84 18 153/74 H 95
== END 2020-03-12 11:57 | disposition home or self-care (01) | DRG 460 ==
LOC: ASU 11:19 → 3E 16:20